=== PATIENT | female | born 1990 | race Caucasian/White ===

== ENCOUNTER 2017-01-18 12:21 | Emergency (ER) | payer OTHER ==
[~2017-01-18] VITALS: Ht 165.1 cm; Wt 112.0 kg
[2017-01-18 12:24] VITALS: Ht 165.1 cm; Wt 112.0 kg
--- NOTE | 2017-01-18 12:58 | ERD ---
ER Documentation Chief Complaint Date/Time DATE: 01/18/17 TIME: 12:56 Chief Complaint Complains of vag bleed HPI Is a 26-year-old female presents emergency department today for vaginal bleeding. Patient states she is 11 weeks and 4 days . States that yesterday she passed a large clot of blood and then it stopped. Denies any vaginal bleeding today. States she called her [facility] , Dr. Ellis was told to come to the emergency room for further evaluation. States her ultrasound at 9 weeks was normal. Denies any abdominal pain, dysuria, fevers or chills, nausea or vomiting ROS All systems reviewed and are negative except as per history of present illness. Medications Home Meds No Active Prescriptions or Reported Meds Allergies Allergies: Coded Allergies: latex (Verified Allergy, Intermediate, 06/30/13) PMhx/Soc Medical and Surgical Hx: pt denies Medical Hx, pt denies Surgical Hx History of Surgery: Yes (CHOLCYSTECTOMY) Anesthesia Reaction: No Hx Neurological Disorder: No Hx Respiratory Disorders: No Hx Cardiac Disorders: No Hx Psychiatric Problems: No Hx Miscellaneous Medical Probl: No Hx Alcohol Use: No Hx Substance Use: No Hx Tobacco Use: No Physical Exam Vitals Vital Signs Date Time Temp Pulse Resp B/P Pulse Ox O2 Delivery O2 Flow Rate FiO2 01/18/17 12:24 98.1 78 20 138/70 99 Physical Exam Const: No acute distress Head: Atraumatic Eyes: Normal Conjunctiva ENT: Normal External Ears, Nose and Mouth. Neck: Full range of motion..~ No meningismus. Resp: Clear to auscultation bilaterally Cardio: Regular rate and rhythm, no murmurs Abd: Soft, non tender, non distended. Normal bowel sounds Skin: No petechiae or rashes Back: No midline or flank tenderness Ext: No cyanosis, or edema Neur: Awake and alert Psych: Normal Mood and Affect Result Diagram: 01/18/17 1251 Results 24 hrs Laboratory Tests Test 01/18/17 12:51 White Blood Count 6.410^3/ul Red Blood Count 4.4210^6/ul Hemoglobin 12.8g/dl Hematocrit 38.4% Mean Corpuscular Volume 86.9fl Mean Corpuscular Hemoglobin 29.0pg Mean Corpuscular Hemoglobin Concent 33.3g/dl Red Cell Distribution Width 13.3% Platelet Count 91117^3/UL Mean Platelet Volume 10.3fl Neutrophils % 73.5% Lymphocytes % 19.2% Monocytes % 5.7% Eosinophils % 0.9% Basophils % 0.2% Nucleated Red Blood Cells % 0.0/100WBC Neutrophils # 4.710^3/ul Lymphocytes # 1.210^3/ul Monocytes # 0.410^3/ul Eosinophils # 0.110^3/ul Basophils # 0.010^3/ul Nucleated Red Blood Cells # 0.010^3/ul Urine Color YELLOW Urine Clarity SLIGHTLY CLOUDY Urine pH 7.0 Urine Specific Simpson 1.014 Urine Ketones NEGATIVEmg/dL Urine Nitrite NEGATIVEmg/dL Urine Bilirubin NEGATIVEmg/dL Urine Urobilinogen NEGATIVEmg/dL Urine Leukocyte Esterase NEGATIVELeu/ul Urine Microscopic RBC 1/HPF Urine Microscopic WBC 2/HPF Urine Bacteria FEW/HPF Urine Mucus FEW/HPF Urine Hemoglobin 3+mg/dL Urine Glucose NEGATIVEmg/dL Urine Total Protein NEGATIVEmg/dl Beta HCG, Quantitative 024717.0mIU/ml DIAGNOSTIC IMAGING REPORT Patient: GWYN ENGLISH : 1990 Age: 26 Sex: F MR #: [id number] DOS: 01/18/17 1249 Ordering MD: CAMERON SIMMONS PA-C Location: [facility] Room/Bed: PROCEDURE: US OB. CLINICAL INDICATION: Vaginal bleeding. TECHNIQUE: Transabdominal and transvaginal views of the pelvis are available for review. COMPARISON: No prior studies are available for comparison. FINDINGS: The uterus measures There is a single living intrauterine gestation with visualization of the active cardiac activity at 161 beats per minute. The mean crown-rump length is 5.45 cm consistent with a 12 weeks 0-day gestation. Ovaries appear normal in size bilaterally. The right ovary measures 2.9 x 1.4 x 1.7 cm. The left ovary measures 3.1 x 1.8 x 2.1 cm. There are no adnexal masses or free fluid in the cul-de-sac. IMPRESSION: 1. Single living intrauterine gestation with a mean gestational age by ultrasound of 12 weeks 0 days plus or minus 8 days. Estimated date of delivery by ultrasound is 08/02/2017. RPTAT: [facility] Physician [place] Date Time Electronically viewed and signed by Remberto Avalos Physician on 01/18/2017 13: 56 JH/ CC: CAMERON SIMMONS PA-C Procedures/MDM This is a 26-year-old female who presents to the emergency department today complaining of vaginal bleeding. Patient states she is approximately 11 weeks and 4 days. Given this I did obtain a complete OB workup. Patient's other pregnancies were 1 ectopic , one elective and 1 miscarriage. Laboratory work shows no elevated white blood cell count. She is not anemic. Platelets are within normal limits. UA is negative for infection. Beta quant hCG Rh status O+ Ultrasound shows a single live intrauterine gestation in mean gestational age by ultrasound 12 weeks and 0 days 8 days. Estimated delivery is August 02, 2017. There are no adnexal masses or free fluid. heart rate 161 bpm Patient symptoms at this time is consistent with vaginal bleeding in early . Other differentials to consider early normal versus early failed versus placenta previa versus subchorionic hemorrhage. Patient is afebrile and otherwise well-appearing. I have low suspicion for ectopic , tubo ovarian abscess, ovarian torsion. I have explained the results to the patient. They may follow-up with her OB/ [facility]ITER[facility] with all of the results. At this time the patient is stable for discharge and outpatient management. Patient should follow up with their PCP in the next 1-2 days. They may return to the emergency department sooner for any persistent or worsening of symptoms. Patient understood and agreed with the plan. Departure Diagnosis: Primary Impression: Vaginal bleeding in patient at less than 20 weeks gestation CAMERON SIMMONS PA-C Jan 18, 2017 12:58
[2017-01-18 13:00] LABS: ADD SCAN DIFF NO
[2017-01-18 13:05] LABS: BASOPHILS % 0.2 % (0.0-2.0); EOSINOPHILS # 0.1 10^3/ul (0.0-0.5); EOSINOPHILS % 0.9 % (0.0-7.0); HEMATOCRIT 38.4 % (37.0-47.0); HEMOGLOBIN 12.8 g/dl (12.0-16.0); LYMPHOCYTES # 1.2 10^3/ul (0.8-2.9); LYMPHOCYTES % 19.2 % (15.0-51.0); MEAN CORPUSCULAR HGB CONC 33.3 g/dl (32.0-37.0); MEAN CORPUSCULAR VOLUME 86.9 fl (82.0-101.0); MEAN PLATELET VOLUME 10.3 fl (7.4-10.4); MONOCYTE # 0.4 10^3/ul (0.3-0.9); MONOCYTES % 5.7 % (0.0-11.0); NEUTROPHIL # 4.7 10^3/ul (1.6-7.5); NEUTROPHILS % 73.5 % (39.0-77.0); PLATELET COUNT 183 10^3/UL (140-415); RED BLOOD COUNT 4.42 10^6/ul (4.20-5.40); RED CELL DISTRIBUTION WIDTH 13.3 % (11.5-14.5); WHITE BLOOD COUNT 6.4 10^3/ul (4.8-10.8)
[2017-01-18 13:35] LABS: ADD UMIC YES; UR ASCORBIC ACID NEGATIVE (NEGATIVE); UR BACTERIA FEW /HPF (NONE SEEN); UR BILIRUBIN (Dip) NEGATIVE (NEGATIVE); UR BLOOD (Dip) 3+ mg/dL (NEGATIVE); UR CLARITY SLIGHTLY CLOUDY (CLEAR); UR COLOR YELLOW (YELLOW); UR GLUCOSE (Dip) NEGATIVE (NEGATIVE); UR KETONES (Dip) NEGATIVE (NEGATIVE); UR LEUKOCYTE ESTERASE (Dip) NEGATIVE Leu/ul (NEGATIVE); UR MUCUS FEW /HPF (NONE SEEN); UR NITRITE (Dip) NEGATIVE (NEGATIVE); UR RBC 1 /HPF (0-5); UR SPECIFIC GRAVITY (Dip) 1.014 (1.003-1.030); UR TOTAL PROTEIN (Dip) NEGATIVE (NEGATIVE); UR UROBILINOGEN (Dip) NEGATIVE (NEGATIVE)
--- NOTE | 2017-01-18 13:57 | RADRPT ---
PROCEDURE: US OB. CLINICAL INDICATION: Vaginal bleeding. TECHNIQUE: Transabdominal and transvaginal views of the pelvis are available for review. COMPARISON: No prior studies are available for comparison. FINDINGS: The uterus measures There is a single living intrauterine gestation with visualization of the active cardiac activity at 161 beats per minute. The mean crown-rump length is 5.45 cm consistent with a 12 weeks 0-day gestation. Ovaries appear normal in size bilaterally. The right ovary measures 2.9 x 1.4 x 1.7 cm. The left ovary measures 3.1 x 1.8 x 2.1 cm. There are no adnexal masses or free flu id in the cul-de-sac. IMPRESSION: 1. Single living intrauterine gestation with a mean gestational age by ultrasound of 12 weeks 0 days plus or minus 8 days. Estimated date of delivery by ultrasound is 08/02/2017. RPTAT: [facility] Physician [place] Date Time Electronically viewed and signed by Physician [place] on 01/18/2017 13:56 /
== END 2017-01-18 15:21 | disposition home or self-care (01) ==
LOC: FTE 12:21
DX: O20.9 Hemorrhage in early pregnancy, unspecified (principal); Z3A.12 12 weeks gestation of pregnancy
CPT/HCPCS: 36415; 76801; 81001; 84702; 85025; 86900; 86901; Z7502

== ENCOUNTER 2017-05-29 13:32 | Inpatient (IN) | payer OTHER ==
[~2017-05-29] VITALS: Ht 167.6 cm; Wt 113.6 kg
[2017-05-29] MEDS ORDERED: PREN-93 PO (13:55)
[2017-05-29 13:56] VITALS: BP 120/63; PULSE 92; RESP 18; Ht 167.6 cm; Wt 113.6 kg
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
[2017-05-29 14:27] LABS: BASOPHILS % 0.3 % (0.0-2.0); EOSINOPHILS % 0.4 % (0.0-7.0); HEMATOCRIT 37.1 % (37.0-47.0); HEMOGLOBIN 12.5 g/dl (12.0-16.0); LYMPHOCYTES # 1.1 10^3/ul (0.8-2.9); LYMPHOCYTES % 13.9 % (15.0-51.0); MEAN CORPUSCULAR HEMOGLOBIN 29.9 pg (29.0-33.0); MEAN CORPUSCULAR HGB CONC 33.7 g/dl (32.0-37.0); MEAN CORPUSCULAR VOLUME 88.8 fl (82.0-101.0); MONOCYTE # 0.5 10^3/ul (0.3-0.9); MONOCYTES % 5.9 % (0.0-11.0); NEUTROPHIL # 6.2 10^3/ul (1.6-7.5); NEUTROPHILS % 78.6 % (39.0-77.0); PLATELET COUNT 190 10^3/UL (140-415); RED BLOOD COUNT 4.18 10^6/ul (4.20-5.40); RED CELL DISTRIBUTION WIDTH 14.3 % (11.5-14.5); WHITE BLOOD COUNT 7.9 10^3/ul (4.8-10.8)
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
== END 2017-05-30 07:50 | disposition home or self-care (01) | DRG 781 ==
LOC: OBT 13:32 → L-D 13:32 → OBT 14:24 → L-D 14:58
PROVIDERS: ADMIT Obstetrics & Gynecology; ATTEND Obstetrics & Gynecology
DX: O26.893 Other specified pregnancy related conditions, third trimester (principal); O36.8130 Decreased fetal movements, third trimester, not applicable or unspecified; M54.2 Cervicalgia; V49.60XA Unspecified car occupant injured in collision with unspecified motor vehicles in traffic accident, initial encounter; Z3A.30 30 weeks gestation of pregnancy
CPT/HCPCS: 76817; 76818; 85025; 85460; 86850; 86900; 86901; G0463

== ENCOUNTER 2017-07-27 08:09 | Inpatient (IN) | END 2017-07-30 15:25 | disposition home or self-care (01) | DRG 775 ==

== ENCOUNTER 2018-02-14 11:04 | Emergency (ER) | END 2018-02-14 13:55 | disposition home or self-care (01) ==